=== PATIENT | male | born 1950 | race Caucasian/White ===

== ENCOUNTER 2018-02-11 09:49 | Day surgery (SDC) | payer MEDICARE, OTHER ==
[~2018-02-11 09:49] MED LIST: RINGER'S SOLUTION,LACTATED 1,000 ML IV PRN
[2018-02-11] MEDS ORDERED: RINGER'S SOLUTION,LACTATED 1,000 ML IV ONE (10:13)
[2018-02-11] MEDS ORDERED: RINGER'S SOLUTION,LACTATED 1,000 ML IV PRN (11:38)
[2018-02-11 12:41] VITALS: BP 108/68
--- NOTE | 2018-02-11 16:37 | OR ---
Operative Report - Dictated Report Narrative: OPERATIVE REPORT DATE OF OPERATION: 02/11/2018 PREOPERATIVE DIAGNOSIS: History of colon polyps POSTOPERATIVE DIAGNOSIS: 5 mm polyp at 20 cm (pathology pending). Diverticulosis OPERATION: Colonoscopy SURGEON: Georgina Fernandez MD ANESTHESIA: ROBIN Damon CRNA INDICATIONS FOR PROCEDURE: The patient is a 67-year-old male referred by Dr. Anthony. The patient had an adenomatous polyp removed at 20 cm and 2002, a 0.5 cm tubular adenoma at 40 cm and 2007. He had a polyp removed at the hepatic flexure however the material submitted to pathology was vegetable matter. He is brought for colon surveillance FINDINGS: NARRATIVE OF PROCEDURE: The patient was identified in the holding area, and prior to the administration of anesthetic, a multidisciplinary timeout was observed. With the patient in the left lateral position and after the administration of intravenous sedation, the perineum was inspected. There was no evidence of pilonidal disease or skin breakdown. The external appearance of the anus was normal. Sphincter tone was good. The flexible fiberoptic colonoscope was inserted into the rectum which was insufflated with air. The rectal mucosa and submucosal vascular pattern appeared normal, the prep was seen to be complete. The scope was advanced through the sigmoid colon, which contained numerous non-impacted noninflamed diverticular openings. The scope was advanced up the descending colon, and around the splenic flexure where the triangular haustral architecture of the transverse colon was seen. The scope was advanced across the transverse colon, around the hepatic flexure to the cecum, where the confluence of tenia and the ileocecal valve were identified. The mucosa at this level appeared normal. The scope was then slowly withdrawn in a circular fashion so that all aspects of colonic mucosa were inspected. The colon was capacious in character and redundant in asked course. The haustral architecture appeared well preserved throughout with no evidence of external compression. The mucosa and submucosal vascular pattern appeared normal, specifically there was no gross evidence to suggest colitis or inflammatory bowel disease and no AV malformations were seen. The diverticulosis was moderate in degree and confined primarily to the sigmoid colon. At 20 cm in the sigmoid colon a 5 mm adenomatous appearing polyp was encountered. This was biopsied with hot biopsy forceps and then thoroughly destroyed with electrocautery. This site was seen to be complete and hemostatic. The scope was gradually withdrawn to the level of the rectum. As much insufflated air as possible was removed. The scope was withdrawn from the patient and the procedure terminated. The patient tolerated the anesthetic and procedure well without complication and was transferred back to the ambulatory surgery area awake and in stable condition. The patient remained stable throughout a period of postoperative observation. He denied abdominal discomfort, was able to tolerate by mouth intake, and was up without assistance. I shared the operative findings with the patient and he was given copies of the photographs which appear in the medical record. He was discharged home with instructions not to engage in hazardous activity today, but may resume normal activity tomorrow, and advance diet as tolerated. He is to continue those medications as listed in the history and physical exam. I made arrangements to contact him with the biopsy reports and will make additional recommendations for treatment and follow-up based upon those results. A pamphlet on diverticular disease was reviewed with him and given to him. A trial of Benefiber in addition to a high fiber diet was recommended. ADDENDUM: Polyp was a Tubulovillous Adenoma RECOMMENDATION: Colon surveillance in 3 years
== END 2018-02-11 09:50 | disposition home or self-care (01) ==
LOC: AMB 09:49
PROVIDERS: ATTEND Surgery
PROC: 0DBN8ZX Excision of Sigmoid Colon, Via Natural or Artificial Opening Endoscopic, Diagnostic (ICD-10-PCS; principal; 2018-02-11)
DX: Z12.11 Encounter for screening for malignant neoplasm of colon (principal); D37.4 Neoplasm of uncertain behavior of colon; K57.30 Diverticulosis of large intestine without perforation or abscess without bleeding; E11.9 Type 2 diabetes mellitus without complications; E78.5 Hyperlipidemia, unspecified; E66.9 Obesity, unspecified; Z68.33 Body mass index [BMI] 33.0-33.9, adult; Z80.0 Family history of malignant neoplasm of digestive organs; Z87.891 Personal history of nicotine dependence